=== PATIENT | male | born 1945 | race Caucasian/White ===

== ENCOUNTER 2016-03-25 05:21 | Day surgery (SDC) | payer MEDICARE, OTHER ==
[~2016-03-25] VITALS: Ht 180.3 cm; Wt 68.9 kg
[2016-03-25] VITALS (10 sets, daily range): BP systolic 110–131; BP diastolic 65–77; PULSE 48–72; TEMP 97.3–97.6
[2016-03-25] MEDS ORDERED: VITAMINC1000TA PO (06:34)
[2016-03-25] MEDS ORDERED: CALCIUM 600/VIT1 CA1 PO (06:35)
[2016-03-25] MEDS ORDERED: LUTEIN6 MG PO (06:35)
[2016-03-25] MEDS ORDERED: LODOSYN 25MG25 MG PO (06:36)
[2016-03-25] MEDS ORDERED: SINEMET CR1 UDTAB.S1 PO (06:37)
[2016-03-25] MEDS ORDERED: COLACE 100100 MG/CAP PO (06:38)
[2016-03-25] MEDS ORDERED: ARICEPT10 MG PO (06:39)
[2016-03-25] MEDS ORDERED: NORCO 325 MG-7.1 TAB PO (12:48)
== END 2016-03-25 15:45 | disposition home or self-care (01) ==
LOC: SDCO 05:21
DX: K40.20 Bilateral inguinal hernia, without obstruction or gangrene, not specified as recurrent (principal)
CPT/HCPCS: A4315; C1769; C1781; E0710; J0690; J1100; J1170; J2175; J2270; J2370; J2405; J2704; J3010; J7120

== ENCOUNTER 2016-03-28 08:09 | Emergency (ER) | payer MEDICARE, OTHER ==
[~2016-03-28] VITALS: Ht 180.3 cm; Wt 70.5 kg
[~2016-03-28 08:09] MED LIST: ARICEPT10 MG PO; CALCIUM 600/VIT1 CA1 PO; COLACE 100100 MG/CAP PO; LODOSYN 25MG25 MG PO; LUTEIN6 MG PO; NORCO 325 MG-7.1 TAB PO; SINEMET CR1 UDTAB.S1 PO; VITAMINC1000TA PO
[2016-03-28 08:12] VITALS: TEMP 98.3
[2016-03-28 10:58] LABS: PH 7 (5-8); SQUAMOUS EPITHELIAL None Seen /hpf; URINE APPEARANCE Hazy; URINE BACTERIA Rare /hpf; URINE BILIRUBIN Negative (NEGATIVE); URINE BLOOD 3+ (NEGATIVE); URINE COLOR Yellow; URINE GLUCOSE Negative (NEGATIVE); URINE KETONE Trace (NEGATIVE); URINE RBC >50 /hpf; URINE UROBILINOGEN Negative (NEGATIVE); URINE WBC >50 /hpf
[2016-03-28] MEDS ORDERED: MACROBID 1100 MG/CAP PO (11:05)
[2016-03-28 11:29] VITALS: BP 127/73; PULSE 55
== END 2016-03-28 11:27 | disposition home or self-care (01) ==
LOC: COL.ER 08:09
PROVIDERS: Emergency Medicine
DX: N40.1 Benign prostatic hyperplasia with lower urinary tract symptoms (principal); R33.8 Other retention of urine; N39.0 Urinary tract infection, site not specified; R31.9 Hematuria, unspecified; Z98.890 Other specified postprocedural states
CPT/HCPCS: J3010

== ENCOUNTER 2016-03-29 10:35 | Emergency (ER) | payer MEDICARE, OTHER ==
[~2016-03-29] VITALS: Ht 180.3 cm; Wt 70.5 kg
[~2016-03-29 10:35] MED LIST changes: +MACROBID 1100 MG/CAP PO
[2016-03-29 10:54] VITALS: TEMP 97.9
[2016-03-29 13:58] VITALS: BP 148/86; PULSE 57
== END 2016-03-29 13:59 | disposition home or self-care (01) ==
LOC: COL.ER 10:35
DX: T83.098A Other mechanical complication of other urinary catheter, initial encounter (principal); R33.9 Retention of urine, unspecified

== ENCOUNTER 2020-02-21 14:07 | Emergency (ER) | payer MEDICARE, OTHER ==
[~2020-02-21] VITALS: Ht 180.3 cm; Wt 68.2 kg
[2020-02-21 14:20] VITALS: TEMP 97.6
[2020-02-21 15:13] LABS: COLLECTION METHOD CATHETER
[2020-02-21 15:18] LABS: BASO % 0.7 % (0.0-2.0); EOS # 0.1 (0.0-0.7); GRAN # 4.6 (1.4-6.5); GRAN % 76.5 % (42.2-75.2); HEMOGLOBIN 13.2 g/dl (13.5-18.0); LYMPH # 0.8 (1.2-3.4); LYMPH % 13.4 % (20.0-51.0); MEAN CELL VOLUME 90 fl (80.0-100.0); MEAN CORPUSCULAR HEMOGLOBIN 30 pg (27.0-31.0); MEAN CORPUSCULAR HGB CONC 33 g/dl (33.0-37.0); MEAN PLATELET VOLUME 9.9 fl (7.4-10.4); MONO # 0.5 (0.1-0.6); MONO % 7.9 % (1.7-9.3); PLATELET COUNT 204 K/mm3 (130-400); RED BLOOD COUNT 4.46 M/mm3 (4.20-5.60); REDCELL DISTRIBUTION WIDTH-CV 14.1 % (11.5-14.5)
[2020-02-21 15:21] LABS: PH 7 (5-8); SQUAMOUS EPITHELIAL None Seen /hpf; URINE APPEARANCE Clear; URINE BACTERIA None Seen /hpf; URINE BILIRUBIN Negative (NEGATIVE); URINE BLOOD Negative (NEGATIVE); URINE COLOR Yellow; URINE GLUCOSE Negative (NEGATIVE); URINE KETONE Negative (NEGATIVE); URINE LEUKOCYTE ESTERASE Negative (NEGATIVE); URINE NITRATE Negative (NEGATIVE); URINE PROTEIN(semi-quant) Negative (NEGATIVE); URINE RBC 0-2 /hpf; URINE UROBILINOGEN Negative (NEGATIVE); URINE WBC 0-2 /hpf
[2020-02-21 15:27] LABS: ALANINE AMINOTRANSFERASE 7 U/L (4-49); ALBUMIN 4.1 gm/dL (3.5-5.0); ALKALINE PHOSPHATASE 55 U/L (50-136); ANION GAP 5 mmol/L (7-16); AST,SGOT 22 U/L (15-37); BILIRUBIN,TOTAL 0.7 mg/dL (0.0-1.0); BLOOD UREA NITROGEN 19 mg/dL (9-20); CALCIUM 8.7 mg/dL (8.4-10.2); CARBON DIOXIDE 26 mmol/L (22-30); CHLORIDE 108 mmol/L (98-107); CREATININE, serum 0.73 (0.66-1.25); GLUCOSE 118 mg/dL (74-106); LIPASE 75 U/L (23-300); POTASSIUM 4.2 mmol/L (3.4-5.0); SODIUM 139 mmol/L (137-145); TOTAL PROTEIN 7.1 gm/dL (6.4-8.2)
[2020-02-21 15:39] LABS: TROPONIN-I < 0.012 ng/mL (0.000-0.035)
[2020-02-21] MEDS ORDERED: LEVAQUIN 750MG750 M1 PO (18:07)
[2020-02-21 19:33] VITALS: BP 141/70; PULSE 66
== END 2020-02-21 19:33 | disposition home or self-care (01) ==
LOC: COL.ER 14:07
PROVIDERS: Emergency Medicine
DX: N41.9 Inflammatory disease of prostate, unspecified (principal); N39.0 Urinary tract infection, site not specified; G20 Parkinson's disease; Z20.822 Contact with and (suspected) exposure to COVID-19
CPT/HCPCS: J1956; J2270; J2405; Q9967

== ENCOUNTER → 2020-05-26 | Outpatient (REF) ==
[~2020-05-26] MED LIST changes: +LEVAQUIN 750MG750 M1 PO
[2020-05-26 14:14] LABS: COLLECTION METHOD CLEAN CATCH
[2020-05-26 14:23] LABS: MUCOUS Present /lpf; PH 7 (5-8); SQUAMOUS EPITHELIAL None Seen /hpf; URINE APPEARANCE Clear; URINE BACTERIA None Seen /hpf; URINE BILIRUBIN Negative (NEGATIVE); URINE BLOOD Negative (NEGATIVE); URINE COLOR Yellow; URINE GLUCOSE Negative (NEGATIVE); URINE KETONE Trace (NEGATIVE); URINE LEUKOCYTE ESTERASE Negative (NEGATIVE); URINE NITRATE Negative (NEGATIVE); URINE PROTEIN(semi-quant) Negative (NEGATIVE)
== END ==
LOC: ZCOL.LAB 14:14
PROVIDERS: Internal Medicine
DX: R39.81 Functional urinary incontinence (principal)

== ENCOUNTER → 2021-04-30 | Outpatient (CLI) | payer MEDICARE, OTHER | LOC: COL.RAD 13:28 | DX: M19.012 Primary osteoarthritis, left shoulder (principal); S40.012A Contusion of left shoulder, initial encounter ==

== ENCOUNTER → 2022-04-10 | Outpatient (REF) | payer MEDICARE, OTHER | LOC: ZCOL.LAB 14:37 | DX: M19.019 Primary osteoarthritis, unspecified shoulder (principal) ==

== ENCOUNTER → 2023-06-12 | Outpatient (CLI) | payer MEDICARE, OTHER ==
[2023-06-12 21:49] LABS: COLLECTION METHOD CLEAN CATCH
[2023-06-12 21:58] LABS: PH 5.5 (5.0-8.5); URINE APPEARANCE CLOUDY (CLEAR/HAZY); URINE BLOOD NEGATIVE (NEGATIVE); URINE COLOR Dark Yellow (YELLOW); URINE GLUCOSE NEGATIVE (NEGATIVE); URINE KETONE 1+ (NEGATIVE); URINE NITRATE NEGATIVE (NEGATIVE); URINE PROTEIN(semi-quant) TRACE (NEGATIVE)
[2023-06-12 22:07] LABS: AMORPHOUS CRYSTAL PRESENT (NOT PRESENT); MUCOUS PRESENT (NOT PRESENT); SQUAMOUS EPITHELIAL 0-2 /hpf (0-10); URINE RBC 0-2 /hpf (0-2)
[2023-06-12 22:08] LABS: URINE BACTERIA OCCASIONAL /hpf (NONE SEEN)
== END ==
LOC: ZCOL.LAB 20:40
PROVIDERS: Emergency Medicine
DX: G20.B2 Parkinson's disease with dyskinesia, with fluctuations (principal)

== ENCOUNTER → 2023-06-16 | Outpatient (REF) | payer MEDICARE, OTHER | LOC: ZCOL.LAB 11:22 | DX: N40.1 Benign prostatic hyperplasia with lower urinary tract symptoms (principal) ==

== ENCOUNTER → 2023-10-15 | Outpatient (REF) | payer MEDICARE, OTHER ==
[2023-10-15 19:34] LABS: COLLECTION METHOD CLEAN CATCH
[2023-10-15 19:44] LABS: URINE APPEARANCE CLEAR (CLEAR/HAZY); URINE BLOOD NEGATIVE (NEGATIVE); URINE COLOR YELLOW (YELLOW); URINE GLUCOSE NEGATIVE (NEGATIVE); URINE KETONE TRACE (NEGATIVE); URINE NITRATE NEGATIVE (NEGATIVE); URINE PROTEIN(semi-quant) TRACE (NEGATIVE)
== END ==
LOC: ZCOL.LAB 16:51
PROVIDERS: Internal Medicine
DX: N39.0 Urinary tract infection, site not specified (principal)